=== PATIENT | female | born 1950 | race Caucasian/White ===

== ENCOUNTER 2019-08-01 08:55 | Outpatient (CLI) | payer MEDICARE, SELFPAY ==
[2019-08-01 13:11] LABS: Alanine Aminotransferase 30 U/L (4-35); Albumin Level 4.2 g/dL (3.5-5.1); Alkaline Phosphatase 94 U/L (38-126); Aspartate Amino Transferase 27 U/L (14-36); Bilirubin,Total 0.4 mg/dL (0.2-1.3); Blood Urea Nitrogen 13 mg/dL (7-17); Calcium 9.4 mg/dL (8.4-10.2); Carbon Dioxide 23 mmol/L (22-30); Chloride 103 mmol/L (98-107); Cholesterol 154 mg/dL (0-200); Estimated Glomerular Filt Rate > 60; Glucose 116 mg/dL (65-105); HDL Direct 53 mg/dL; Potassium 4.3 mmol/L (3.4-5.0); Sodium 138 mmol/L (137-145); Triglycerides 171 mg/dL (<150)
[2019-08-01 13:15] LABS: Hemoglobin A1C 6.6 % (<5.7)
[2019-08-01 13:21] LABS: LDL Cholesterol Direct 82 mg/dL
[2019-08-01 13:39] LABS: Creatinine Urine 90.2 mg/dL
[2019-08-01 14:25] LABS: MALB Creatinine Ratio < 6.7 mg/g (0-30); Microalbumin Urine Random < 6.0 mg/L (0-16.7)
== END 2019-08-01 08:56 | disposition home or self-care (01) ==
LOC: ANHWCLAB 09:11
PROVIDERS: PCP Internal Medicine; Visit Provider Internal Medicine
DX: E11.9 Type 2 diabetes mellitus without complications (principal); E78.2 Mixed hyperlipidemia; E03.9 Hypothyroidism, unspecified; Z79.899 Other long term (current) drug therapy
CPT/HCPCS: 36415; 80053; 80061; 82043; 83036; 84443

== ENCOUNTER 2020-01-30 08:48 | Outpatient (CLI) | payer MEDICARE, SELFPAY ==
[2020-01-30 09:28] LABS: Alanine Aminotransferase 33 U/L (4-35); Albumin Level 4.1 g/dL (3.5-5.1); Alkaline Phosphatase 80 U/L (38-126); Anion Gap 10.2 mmol/L (7-16); Aspartate Amino Transferase 34 U/L (14-36); Bilirubin,Total 0.4 mg/dL (0.2-1.3); Blood Urea Nitrogen 15 mg/dL (7-17); Calcium 8.5 mg/dL (8.4-10.2); Carbon Dioxide 28 mmol/L (22-30); Chloride 105 mmol/L (98-107); Cholesterol 160 mg/dL (0-200); Estimated Glomerular Filt Rate > 60; Glucose 103 mg/dL (65-105); HDL Direct 46 mg/dL; Potassium 4.2 mmol/L (3.4-5.0); Sodium 139 mmol/L (137-145); Triglycerides 264 mg/dL (<150)
[2020-01-30 09:40] LABS: LDL Cholesterol Direct 76 mg/dL
[2020-01-30 09:58] LABS: Thyroid Stimulating Hormone 0.786 uIU/mL (0.465-4.680)
[2020-01-30 10:52] LABS: Free T4 Free Thyroxine 1.17 ng/mL (0.78-2.19)
[2020-01-30 11:49] LABS: Hemoglobin A1C 6.2 % (<5.7)
== END 2020-01-30 08:49 | disposition home or self-care (01) ==
PROVIDERS: PCP Internal Medicine; Visit Provider Nurse Practitioner
DX: E78.5 Hyperlipidemia, unspecified (principal); E03.9 Hypothyroidism, unspecified; E11.9 Type 2 diabetes mellitus without complications
CPT/HCPCS: 36415; 80053; 80061; 83036; 84439; 84443

== ENCOUNTER 2020-08-06 10:47 | Outpatient (CLI) | payer MEDICARE, SELFPAY ==
--- NOTE | ~2020-08-06 | XR_ITS ---
EXAMINATION: XR knee LT 3V DATE: 08/06/2020 11:08 INDICATION: Left knee pain. TECHNIQUE: 3 views of left knee were obtained. COMPARISON: None. FINDINGS: Bone alignment is normal. No fracture. There is mild tricompartmental osteoarthritis. There is a moderate-sized knee joint effusion. IMPRESSION: 1. Mild left knee osteoarthritis. 2. Moderate-sized left knee joint effusion. Reviewed, dictated and finalized at location A. NT ENGINEER
== END 2020-08-06 10:48 | disposition home or self-care (01) ==
PROVIDERS: PCP Internal Medicine; Visit Provider Nurse Practitioner
DX: M17.12 Unilateral primary osteoarthritis, left knee (principal); M25.462 Effusion, left knee
CPT/HCPCS: 73562

== ENCOUNTER → 2020-11-01 10:03 | Outpatient (CLI) | payer MEDICARE, SELFPAY ==
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
== END ==
PROVIDERS: PCP Internal Medicine; Visit Provider Nurse Practitioner
DX: Z12.31 Encounter for screening mammogram for malignant neoplasm of breast (principal); R92.8 Other abnormal and inconclusive findings on diagnostic imaging of breast
CPT/HCPCS: 77063; 77067

== ENCOUNTER → 2020-11-27 08:25 | Outpatient (CLI) | payer MEDICARE, SELFPAY ==
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
== END ==
PROVIDERS: PCP Internal Medicine; Visit Provider Nurse Practitioner
DX: R92.8 Other abnormal and inconclusive findings on diagnostic imaging of breast (principal)
CPT/HCPCS: 76642; 77065

== ENCOUNTER 2021-01-30 13:30 | Outpatient (CLI) | payer MEDICARE, SELFPAY ==
--- NOTE | ~2021-01-30 | MR_ITS ---
EXAMINATION: MR knee LT wo con DATE: 01/30/2021 15:09 INDICATION: Left knee pain. TECHNIQUE: Magnetic resonance imaging (MRI) of the left knee was performed without intravenous contra st. Sequences included axial PD-weighted FS FSE, coronal PD-weighted FSE and PD-weighted FS FSE, sagi ttal PD-weighted FSE, and sagittal T2-weighted FS FSE. COMPARISON: Left knee radiographs 08/06/2020 FINDINGS: Medial compartment: There is an undersurface horizontal tear of body and posterior horn of medial meniscus. There is exte nsive shallow partial-thickness cartilage loss of tibial condyle and femoral condyle. There is deep p artial thickness cartilage loss of femoral condyle involving the medial articular surface with mild s ubchondral edema-like marrow signal intensity. Osteophytes are noted. There are subchondral cysts in the femoral condyle at the posterior articular surface. Lateral compartment: Lateral meniscus is normal. There is extensive shallow partial-thickness cartilage loss of tibial con dyle and femoral condyle. There is deep partial thickness cartilage loss of femoral condyle involving the posterior articular surface. Osteophytes are noted. Patellofemoral compartment: There is full-thickness cartilage loss of patellar median ridge and medial facet and deep partial thi ckness cartilage loss of patellar lateral facet with mild subchondral edema-like marrow signal intens ity. There is partial-thickness cartilage loss of trochlea. Osteophytes are noted. Ligaments and tendons: The anterior and posterior cruciate ligaments are normal. There are changes of prior sprains of media l collateral ligament and fibular collateral ligament characterized by increased signal intensity pro ximally. There is mild patellar tendinopathy. Fluid: There is a large knee joint effusion. There is trace fluid in a Schaffer's cyst. There is mild prepatell ar and superficial infrapatellar bursitis. IMPRESSION: 1. Severe chondrosis of patellofemoral compartment and moderate chondrosis of medial and lateral comp artments. 2. Tear of medial meniscus. 3. Large knee joint effusion. Reviewed, dictated and finalized at location A. IMPRESSION: 1. Severe chondrosis of patellofemoral compartment and moderate chondrosis of m edial and lateral compartments. 2. Tear of medial meniscus. 3. Large knee joint effusion.
== END 2021-01-30 13:31 | disposition home or self-care (01) ==
LOC: ANHIMG 13:41
PROVIDERS: PCP Internal Medicine; Visit Provider Orthopaedic Surgery
DX: S83.242A Other tear of medial meniscus, current injury, left knee, initial encounter (principal); X58.XXXA Exposure to other specified factors, initial encounter; M25.462 Effusion, left knee
CPT/HCPCS: 73721

== ENCOUNTER 2021-03-24 09:24 | Outpatient (CLI) | payer MEDICARE, SELFPAY ==
--- NOTE | 2021-03-24 09:34 | ECG_ITS ---
Measurements Intervals Coleman Rate: 51 P: 22 ID: [id number] QRS: 15 QRSD: 94 T: 11 QT: 396 QTc: 368 Interpretive Statements SINUS BRADYCARDIA BORDERLINE T WAVE ABNORMALITY- ANTERIOR LEADS BASELINE ARTIFACT- I, III, AVL BORDERLINE ECG Electronically Signed On 03-24-2021 10:46:47 CDT by Frantz Butler D.O.
== END 2021-03-24 09:25 | disposition home or self-care (01) ==
LOC: ANHSURGERY 09:26
PROVIDERS: PCP Internal Medicine; Visit Provider Orthopaedic Surgery
DX: E78.5 Hyperlipidemia, unspecified (principal); R94.31 Abnormal electrocardiogram [ECG] [EKG]
CPT/HCPCS: 93005

== ENCOUNTER 2021-03-31 00:23 | Day surgery (SDC) | payer MEDICARE, SELFPAY ==
[2021-03-18 15:02] VITALS: BMI 40.1
[2021-03-31] VITALS (7 sets, daily range): BP systolic 140–168; BP diastolic 53–118; PULSE 55–79; RESP 10–19; TEMP 36.5–36.6; O2SAT 98–100
[2021-03-31 12:47] LABS: Glucose Point of Care 103 mg/dl (65-105)
[2021-03-31] MEDS: ACETAMINOPHEN 500 MG TABLET 1000 MG PO (12:54)
[2021-03-31] MEDS: KETOROLAC 15 MG/ML VIAL (*BKC) IV PUSH (12:54)
--- NOTE | 2021-03-31 13:07 | WPDANESEPPF ---
Anes - Initial Pre Proc Eval Procedure: Operation Date: 03/31/21 14:00 Proposed Procedures p Left Knee Arthroscopy, Partial Meniscectomy - Tony Lizarraga MD Date/Time: 03/31/21 13:07 Surgeon: Tony Lizarraga MD Pre Op Diagnosis: left knee medial meniscal tear Patient Data Age: 70 Gender: F Height: 1.66 m Weight: 111.5 kg Allergies Allergy/AdvReac Type Severity Reaction Status Date / Time codeine AdvReac Intermediate NAUSEA/VOMI Verified 03/31/21 12:50 TING erythromycin base AdvReac Intermediate NAUSEA, Verified 03/31/21 12:50 JOINT ACHES MYCINS AdvReac Intermediate NAUSEA Uncoded 03/31/21 12:50 Home Medications Medication Instructions Recorded Confirmed Type omega 7-ida-pio-fish oil 1,000 mg 3 cap PO DAILY cap 04/28/19 03/31/21 History (120 mg-180 mg) capsule aspirin 81 mg tablet,delayed 81 mg PO DAILY 01/23/20 03/31/21 History release pantoprazole 40 mg tablet,delayed 40 mg PO DAILY #90 tablet 02/13/21 03/31/21 Rx release azelastine 2 spray NASAL Q12H PRN 03/18/21 03/31/21 History ibuprofen [Advil] 800 mg PO HS 03/18/21 03/31/21 History levothyroxine [Synthroid] 100 mcg PO QAM 03/18/21 03/31/21 History metformin 500 mg PO BID 03/18/21 03/31/21 History simvastatin 10 mg PO HS 03/18/21 03/31/21 History Laboratory Tests 03/31/21 12:44 POC Capillary Glucose 103 mg/dl mg/dl (65-105) Patient hx anesthesia problems: none Family hx anesthesia problems: none Results Review: All pre-operative results and documents have been reviewed as part of the pre-operative evaluation. [facility] Past Medical History Medical History (Updated 03/31/21 @ 13:09 by Ridge Escalante DO) Basal cell carcinoma of back Breast mass, right GERD (gastroesophageal reflux disease) Hemoglobin A1c less than 7.0% 07/25/20 A1c = 6.5 Hyperlipidemia Hypothyroidism, unspecified Osteoarthritis of left knee Tear of medial meniscus of left knee Type 2 diabetes mellitus Surgical History Surgical History History of hysterectomy History of rhinoplasty History of tubal ligation Family History Family History Mother Family history of osteoporosis Hypertension Family history of osteoarthritis Family history of coronary artery disease Father Hypertension Family history of elevated blood lipids Acute myocardial infarction Sibling Family history of malignant neoplasm of brain Mother Family history of congestive heart failure Father Myocardial infarction Grandparent Carcinoma of colon Social History Social History Smoking packs per day: 1 Smoking cigarettes per day: 20.0 Years smoked: 40 Smoking pack-years: 40.00 Smoking status: Former smoker Tobacco type: cigarettes Second hand tobacco smoke exposure: No Smoking end date: 03/28/16 Alcohol intake: current Alcohol use details: Drinks less than 1 per week Substance use: never Living arrangements: with family Additional living arrangements comments: SON Additional occupation/education comments: Retired teacher Gender identity (if verbalized by the patient): Female Sexual Orientation (if Verbalized by the Patient): Straight or Heterosexual Spiritual care concerns: No Anes - Eval Final PreProcedure Day of Procedure 03/31/21 13:07 Patient weight: morbidly obese Heart: regular rate and rhythm Lungs: clear to auscultation and normal air movement Airway: Mallampati scale class II Neurological: alert and oriented Last oral intake: >/= 8 hours ASA classification: III Emergent: no Anesthetic plan: proceed Anesthesia type and monitoring: general LMA and standard monitoring Results Review: All pre-operative results and documents have been reviewed as part of the pre-operative evaluation. Informed Consent: The
--- NOTE | 2021-03-31 13:11 | SUR.PREOP ---
pt has walker and aware how to use.
[2021-03-31] MEDS: LACTATED RINGERS 1,000 ML 30 ML IV CONT (13:23)
--- NOTE | 2021-03-31 14:07 | WPDHPUPDATE1 ---
History and Physical Update Update Date/Time: 03/31/21 14:07 History and Physical has been reviewed, including an updated exam of the patient. There are NO changes in the patient's condition. Risks, benefits, and alternatives have been discussed and questions answered. Patient agrees to proceed with procedure.
[2021-03-31] MEDS: ceFAZolin 2 GM/D5W 50 ML 2 GM/50 ML BAG IVPB (15:02)
--- NOTE | 2021-03-31 15:49 | W.PM.PROC2 ---
Procedure Note - Detailed Date of Procedure 03/31/21 Pre-op Diagnosis left knee medial meniscal tear Post-op Diagnosis same Procedure Performed left knee arthroscopy partial medial meniscectomy Surgeon Tony Lizarraga MD Anesthesia general Description of Procedure The patient was identified and proper site identified. She was taken to the operating room and transferred to the OR table placing her supine taking care to pad the torso and extremities. After general anesthetic induction and intubation, a nonsterile tourniquet was placed high on the left thigh but was not inflated. The left lower extremity was positioned, prepped and draped in usual sterile fashion. 10 cc of 1% lidocaine was injected into the subcutaneous tissue in the area of the portals at start of the procedure, and an additional 10 at the end. The portals were established and the arthroscopy was carried out. there was extensive synovitis throughout the knee joint. In the infrapatellar region and anterior horn of the medial meniscus area there was quite a bit of inflamed synovium with evidence of chronic impingement. This area was debrided with shaver than ArthroCare Wand used for hemostasis. Articular cartilage in lateral compartment was in pretty decent shape. There is some fraying of the lateral meniscus. Articular cartilage anteriorly medially was a bit more degenerative. There is complex tearing of the medial meniscus from the posterior horn to the midbody. This was contoured back to a stable rim with basket forceps and a shaver. The knee was flushed with a copious amount of arthroscopic fluid and equipment was removed. Portals were closed with three O nylon suture and a sterile dressing was applied. She tolerated the procedure well, was awakened, extubated and taken to recovery area in stable condition. There were no known intraoperative complications. Estimated blood loss was negligible. She received perioperative antibiotics. Estimated Blood Loss 15 Tourniquet Time 0 Drains No Packing No Pathology none sent Complications No immediate complications Condition stable Disposition PACU
[2021-03-31 15:53] LABS: Glucose Point of Care 86 mg/dl (65-105)
[2021-03-31] MEDS: fentaNYL CITRATE INJ (*CRX) 100 MCG/2 ML VIAL 25 MCG IV PUSH ×2 (15:58→16:01)
== END 2021-03-31 17:25 | disposition home or self-care (01) ==
PROVIDERS: PCP Internal Medicine; Visit Provider Orthopaedic Surgery
PROC: (CPT 29870; principal; 2021-03-31 14:00)
DX: M23.322 Other meniscus derangements, posterior horn of medial meniscus, left knee (principal); Z79.82 Long term (current) use of aspirin; E03.9 Hypothyroidism, unspecified; Z87.2 Personal history of diseases of the skin and subcutaneous tissue; Z85.828 Personal history of other malignant neoplasm of skin; K21.9 Gastro-esophageal reflux disease without esophagitis; E78.5 Hyperlipidemia, unspecified; E11.9 Type 2 diabetes mellitus without complications; Z87.891 Personal history of nicotine dependence; E66.01 Morbid (severe) obesity due to excess calories; Z68.41 Body mass index [BMI] 40.0-44.9, adult; Z79.84 Long term (current) use of oral hypoglycemic drugs
CPT/HCPCS: 29881; 82948; A9270; J0690; J1885; J2250; J3010; J7120

== ENCOUNTER 2021-04-22 10:45 | Outpatient (RCR) | payer MEDICARE, SELFPAY ==
--- NOTE | 2021-04-02 11:55 | PTOPEVAL ---
Thank you for referring Pedro Stark to [facility].? The patient is scheduled to be seen for therapy? 2 x/week for 8 weeks. Please review, sign, date and return this plan of care BERNARD. I agree with and certify that the following plan of care is medically necessary. Referring Physician Date Attending Provider: Tony Lizarraga MD Diagnosis left meniscus tear Onset 06/16 Additional Evaluation Detail She originally injured her knee years ago, but had no problems after receiving a cortison injection. She has 2 + 1 step to enter house. She has 1 flight to basement, but does not have to perform at this time. Subjective Information She had increased knee pain Query Text:As Reported By Patient/ following kneeling on the Family floor 06/16. She did not use a device prior to surgery. She was performing a walking program, but stopped when her knee pain increased. She does have an eliptical/cycling and TM equipment at home. She has been using a ww since surgery. She reports limitations with standing, sitting, walking, steps, monologist, and ADL's. Pain Assessment Self Report Pain Assessment Left Knee(s) Reported Pain Level 2 Pain Frequency Acute,Continuous Lowest Pain Intensity 2 Greatest Pain Intensity 6 Pain Aggravating Factors ADL's,Bending,Exercise/ Activity,Sitting,Stair Climbing,Walking,Weight Bearing/Standing Lower Extremity Range of Motion Knee Range of Motion Left Knee Flexion Range of Motion - Active 86 Knee Extension Range of Motion - Passive -18 Knee Range of Motion Limitations Edema,Muscle Weakness,Pain, Soft Tissue Restriction Lower Extremity Muscle Strength Testing General Lower Extremity Strength Gross Lower Extremity Strength right hip ext: 3-/5, flex: 4/5 knee flex: 4-/5, ext: 4+/5 Hip Strength Left Hip Flexion Strength 3- Fair - Hip Extension Strength 3- Fair - Hip Abduction Strength 3- Fair - Knee Strength Left Knee Flexion Strength 3+ Fair + Knee Extension Strength 3 Fair Posture Posture Standing Position Weight Distribution Weight Marissa
--- NOTE | 2021-04-10 09:11 | PCPTNOTE ---
Patient called & cancelled scheduled appointment this date due to not feeling well.
--- NOTE | 2021-04-24 08:56 | PCPTNOTE ---
Patient called to cancel this date. Patient states she did not feel well.
--- NOTE | 2021-04-29 08:58 | PCPTNOTE ---
Patient called & cancelled all f/u scheduled appointment due therapy is too much for her.
--- NOTE | 2021-04-29 08:58 | PCPTNOTE ---
Admitting Provider: Attending Provider: Tony Lizarraga MD Patient:Pedro Stark Date of :1950 Physical Therapy Discharge Summary Patient called to cancel her remaining therapy visits due to therapy is too much for her. She attended 4 therapy visits with 3 cancelled visits since initial visit was on 04/02/2021. The goals have been not met at this time due to limited therapy visits. Thank you for referring this patient to [facility]. Please review, sign, date and return this discharge summary BERNARD. I have been updated about the patient's current status and I agree with discharge from the above service at this time. Referring Physician Date
== END 2021-04-29 15:40 | disposition home or self-care (01) ==
LOC: ANHPT 10:45
PROVIDERS: PCP Internal Medicine; Visit Provider Orthopaedic Surgery
DX: Z48.89 Encounter for other specified surgical aftercare (principal)
CPT/HCPCS: 97014; 97110; 97162; G0283

== ENCOUNTER 2021-12-04 11:42 | Outpatient (CLI) | payer MEDICARE, SELFPAY ==
--- NOTE | ~2021-12-04 | MMUS_ITS ---
EXAMINATION: MM diagnostic james BI w juliana, US breast RT limited HISTORY: Overdue six-month follow-up for probably benign focal asymmetry and mass of the right breast TECHNIQUE: Craniocaudal, mediolateral, and mediolateral oblique 3-D tomosynthesis images of the breas ts were performed and synthetic 2-D images were generated. CAD analysis was submitted and interpreted . High resolution limited right breast ultrasound was performed. COMPARISON: 11/27/2020, 11/01/2020, 11/29/2017, 08/13/2016 BREAST PARENCHYMAL COMPOSITION: There are scattered areas of fibroglandular density. FINDINGS: MAMMOGRAPHIC FINDINGS: Right breast: Focal asymmetry persists in the upper outer quadrant of the right breast decreased sinc e the comparison examination. There is a persistent 12 mm coil cyst in the upper outer quadrant of th e breast. Masses in the middle and posterior thirds of the right breast are stable when compared to p rior examinations, consistent with benign findings. Left breast: There is no suspicious mass, calcification, or architectural distortion to suggest nithya gnancy. There has been no suspicious interval change. ULTRASOUND: There are stable cysts in the upper outer quadrant of the right breast without significant change. IMPRESSION: 1. No mammographic or sonographic evidence of malignancy. 2. Recommend routine screening mammography in one year. BI-RADS Category 2: Benign finding(s). Reviewed, dictated and finalized at location A. IMPRESSION: 1. No mammographic or sonographic evidence of malignancy. 2. Recommend routine screening mammography in one year. BI-RADS Category 2: Benign finding(s).
== END 2021-12-04 11:43 | disposition home or self-care (01) ==
PROVIDERS: PCP Internal Medicine; Visit Provider Internal Medicine
DX: R92.8 Other abnormal and inconclusive findings on diagnostic imaging of breast (principal)
CPT/HCPCS: 76642; 77062; 77066; G0279

== ENCOUNTER → 2022-06-11 08:12 | Outpatient (CLI) | payer MEDICARE, SELFPAY ==
--- NOTE | ~2022-06-11 | MR_ITS ---
MRI of the left ankle Clinical history: Pain Technique: Coronal proton-density and proton-density fat-sat images, axial proton-density and proton- density fat-sat images, and sagittal proton-density and proton-density fat-sat images were acquired. Findings: Syndesmotic ligaments are intact. Anterior and posterior talofibular ligaments, and calcane ofibular ligament are intact. Deltoid ligament is intact. Superomedial band of the spring ligament ap pears intact. Medial flexor tendons, peroneal tendons, and anterior extensor tendons are intact. There is moderate tendinosis of the distal Achilles tendon, which is thickened and intense, with suspected superimposed linear interstitial tear. There is moderate degenerative change at the third TMT joint, with subchondral cystic change about th e joint. Remaining bone marrow signals and joint spaces are preserved. No significant joint effusion. Plantar fascia intact. Normal signal preserved at the sinus Tarsi. No soft tissue mass or fluid colle ction identified. IMPRESSION: Moderate distal Achilles tendinosis with superimposed linear low-grade interstitial tear. Moderate degenerative change of the third TMT joint. Reviewed, dictated and finalized at location [] [employer] IMPRESSION: Moderate distal Achilles tendinosis with superimposed linear low-grade intersti tial tear. Moderate degenerative change of the third TMT joint.
== END ==
PROVIDERS: PCP Internal Medicine; Visit Provider Podiatrist Foot & Ankle Surgery
DX: M25.572 Pain in left ankle and joints of left foot (principal); M76.62 Achilles tendinitis, left leg
CPT/HCPCS: 73721

== ENCOUNTER 2022-10-29 11:41 | Emergency (ER) | payer MEDICARE, SELFPAY ==
[2022-10-29 11:46] VITALS: BP 158/87; PULSE 62; RESP 20; TEMP 36.6; O2SAT 99
[2022-10-29 11:53] VITALS: BP 158/87; PULSE 62; RESP 20; TEMP 36.6; O2SAT 99
--- NOTE | 2022-10-29 12:06 | ED.EAR ---
HPI - Ear Problem General Chief complaint: Ear Stated complaint: Dizziness/Ears Irritation Time Seen by Provider: 10/29/22 12:07 Source: patient and RN notes reviewed Mode of arrival: ambulatory Limitations: no limitations History of Present Illness HPI Narrative: 72-year-old female presents with concern for sinus congestion, pressure, postnasal drainage for 2 weeks. She reports in the last 2 days her ears feel full, clogged she has had 2 episodes of dizziness. She reports the dizziness as room spinning in nature. She denies any headache, weakness in any extremity, difficulty speaking, difficulty swallowing. She reports she has started using nasal spray yesterday. She denies hearing changes or drainage from the ears. MD Complaint: other (Sinus congestion, ear fullness) Related Data Home Medications Medication Instructions Recorded Confirmed omega 1-xkd-yyp-fish oil 1,000 mg 3 cap PO DAILY 04/28/19 10/29/22 (120 mg-180 mg) capsule (Fish Oil) aspirin 81 mg tablet,delayed 81 mg PO DAILY 01/23/20 10/29/22 release ibuprofen 200 mg tablet (Advil) 800 mg PO HS PRN Pain 05/11/22 10/29/22 empagliflozin 10 mg tablet 10 mg DIRECTED 10/29/22 10/29/22 (Jardiance) ezetimibe 10 mg tablet 10 mg PO DAILY 10/29/22 10/29/22 Allergies Allergy/AdvReac Type Severity Reaction Status Date / Time codeine AdvReac Intermediate NAUSEA/VOMI Verified 05/11/22 13:49 TING erythromycin base AdvReac Intermediate NAUSEA, Verified 08/06/22 08:20 JOINT ACHES Review of Systems Review of Systems: CONSTITUTIONAL: Denies malaise, chills, sweats, or fever. EYES: Denies visual changes, redness, or discharge. ENT: Reports rhinorrhea, congestion, sinus pain. Denies sore throat. Reports ear fullness CARDIOVASCULAR: Denies chest pain, palpitations, or edema. RESPIRATORY: Denies cough. Denies dyspnea. GASTROINTESTINAL: Denies abdominal pain, nausea, vomiting, diarrhea SKIN: Denies rash or itching. MUSCULOSKELETAL: Denies myalgia. NEUROLOGIC: Denies headache, weakness. Reports dizziness All systems reviewed & are unremarkable except as noted in HPI and below PMFSH Past Medical History Medical History Basal cell carcinoma of back Breast mass, right COVID-19 GERD (gastroesophageal reflux disease) Hemoglobin A1c less than 7.0% 07/25/20 A1c = 6.5 Hyperlipidemia Hypothyroidism, unspecified Osteoarthritis of left knee Tear of medial meniscus of left knee Type 2 diabetes mellitus Surgical History Surgical History History of hysterectomy History of left knee surgery arthroscopy with partial medial meniscectomy March 31, 2021 History of rhinoplasty History of tubal ligation Family History Family History Mother Family history of osteoporosis Hypertension Family history of osteoarthritis Family history of coronary artery disease Father Hypertension Family history of elevated blood lipids Acute myocardial infarction Sibling Family history of malignant neoplasm of brain Mother Family history of congestive heart failure Father Myocardial infarction Grandparent Carcinoma of colon Social History Social History Smoking packs per day: 1 Smoking cigarettes per day: 20.0 Years smoked: 40 Smoking pack-years: 40.00 Smoking status: Former smoker Tobacco type: cigarettes Second hand tobacco smoke exposure: No Smoking end date: 03/28/16 Alcohol intake: current Alcohol use details: occasionally Substance use: never Substance use type: does not use Lack of Transportation: No Lack of Food: Never True Current Housing: I Have Housing Concerned About Future Housing: No Difficulty Paying Gas/Electric Bills: No Difficulty Paying for Meds: No Curr
== END 2022-10-29 12:17 | disposition home or self-care (01) ==
PROVIDERS: Emergency Provider Nurse Practitioner; PCP Internal Medicine
DX: J01.90 Acute sinusitis, unspecified (principal); Z87.891 Personal history of nicotine dependence; K21.9 Gastro-esophageal reflux disease without esophagitis; E78.5 Hyperlipidemia, unspecified; E03.9 Hypothyroidism, unspecified; M17.12 Unilateral primary osteoarthritis, left knee; E11.9 Type 2 diabetes mellitus without complications; Z85.828 Personal history of other malignant neoplasm of skin; Z86.16 Personal history of COVID-19; Z79.82 Long term (current) use of aspirin
CPT/HCPCS: 99213; G0463

== ENCOUNTER 2023-02-26 15:13 | Outpatient (CLI) | payer MEDICARE, SELFPAY ==
--- NOTE | ~2023-02-26 | MM_ITS ---
EXAMINATION: MM screening [facility] BI w juliana HISTORY: Screening mammogram TECHNIQUE: Craniocaudal and mediolateral oblique 3-D tomosynthesis images were obtained and synthetic 2-D images were generated. CAD analysis was submitted and interpreted. COMPARISON: 12/04/2021 diagnostic bilateral mammogram and limited right breast ultrasound examination 11/27/2020 diagnostic right mammogram and limited right breast ultrasound 11/01/2020 bilateral screening mammogram BREAST PARENCHYMAL COMPOSITION: There are scattered areas of fibroglandular density. FINDINGS: Again noted is right upper outer quadrant asymmetry including oil cyst and likely postbiops y scarring. There numerous benign calcifications again noted on the right. Stable approximately 4.9 x 6 mm circumscribed opacity is noted posteriorly in the central mid to uppe r posterior right breast. There is no evidence of suspicious mass, calcification, or architectural di stortion to suggest malignancy in either breast. There has been no suspicious interval change. IMPRESSION: 1. Benign findings; no significant change since 11/01/2020 2. Routine annual mammographic screening is recommended BI-RADS Category 2: Benign finding(s). Reviewed, dictated and finalized at location A.
== END 2023-02-26 15:14 | disposition home or self-care (01) ==
LOC: ANHIMG 15:15
PROVIDERS: PCP Family Medicine; Visit Provider Nurse Practitioner
DX: Z12.31 Encounter for screening mammogram for malignant neoplasm of breast (principal)
CPT/HCPCS: 77063; 77067

== ENCOUNTER → 2023-08-20 07:57 | Outpatient (CLI) | payer MEDICARE, SELFPAY ==
--- NOTE | ~2023-08-20 | MR_ITS ---
MRI of the right knee Clinical history: Medial meniscal tear Technique: Coronal proton density and proton density-weighted images, sagittal proton-density and T2 fat-sat images, and axial proton-density fat-saturated images were acquired. Findings: Anterior and posterior cruciate ligaments are intact. Medial collateral ligament and the la teral collateral ligament complex are intact. Popliteus tendon is intact. Questionable subtle undersurface flap tear of the posterior horn of the medial meniscus. No lateral m eniscal tear seen. There is mild chondromalacia of the medial and lateral compartments. There is moderate to high-grade patchy chondromalacia of the patella. There is extensive moderate chondromalacia the femoral trochlea . Small tricompartmental osteophytes are present. Extensor mechanism is intact. Minimal joint effusion present. No Schaffer's cyst. Impression: Questionable undersurface flap tear of the posterior horn of the medial meniscus. Mild tricompartmental degenerative change, worst in the patellofemoral compartment. Reviewed, dictated and finalized at [facility]. D BANK SUPERVISOR Impression: Questionable undersurface flap tear of the posterior horn of the medial meniscu s. Mild tricompartmental degenerative change, worst in the patellofemoral compartm ent.
== END ==
PROVIDERS: PCP Orthopaedic Surgery; Visit Provider Orthopaedic Surgery
DX: S83.241A Other tear of medial meniscus, current injury, right knee, initial encounter (principal); X58.XXXA Exposure to other specified factors, initial encounter
CPT/HCPCS: 73721

== ENCOUNTER 2023-11-10 10:21 | Outpatient (CLI) | payer MEDICARE, SELFPAY ==
--- NOTE | ~2023-11-10 | DEXA_ITS ---
Bone Density Report Name: SARAH SUGGS Age: 73 Sex: Female Ethnicity: White Date of : 1950 Indication: postmenopausal; screening for osteoporosis; height loss; history of glucocorticoids; cancer; hysterectomy; Referring Provider: KB NASSAR Study: Bone densitometry was performed. Exam Date: November 10, 2023 Accession number: [id number] Bone Density: Region BMD T-score Z-score Classification AP Spine(L1-L4) 1.177 1.2 3.4 Normal Femoral Neck (Left) 0.866 0.2 2.1 Normal Total Hip (Left) 1.114 1.4 3.0 Normal Femoral Neck (Right) 0.959 1.0 2.9 Normal Total Hip (Right) 1.114 1.4 3.0 Normal Total Hip Mean 1.114 1.4 3.0 Normal World Health Organization criteria for BMD impression classify patients as: Normal (T-score at or above -1.0), Osteopenia (T-score between -1.0 and -2.5), or Osteoporosis (T-score at or below -2.5). 10-year Fracture Risk: FRAX not reported because: All T-scores for Spine Total, Hip Total, Femoral Neck at or above -1.0 Previous Exams: Region Exam Age BMD T-score BMD Change BMD Change Date g/cm2 vs Baseline vs Previous AP Spine (L1-L4) 11/10/2023 73 1.177 1.2 0.048 (4.2%)* 0.048 (4.2%)* 11/10/2023 73 1.130 0.8 Total Hip(Left) 11/10/2023 73 1.114 1.4 0.007 (0.6%) 0.007 (0.6%) 09/10/2016 66 1.107 1.4 Total Hip(Right) 11/10/2023 73 1.114 1.4 0.035 (3.2%)* 0.035 (3.2%)* 09/10/2016 66 1.079 1.1 *Denotes significance at 95% confidence level, LSC for AP Spine = 0.022 g/cm2, LSC for Total Hip = 0.027 g/cm2 Clinical Information Provided by Patient: Smokes Has taken Glucocorticoids Has the following medical conditions: Cancer, Hysterectomy Patient maximum height was 67 Menopause Age: 38 No regular weight bearing exercise Drinks caffeinated beverages Onset of menses at age 15 Number of children 3 Impression: The patient has normal bone mass. The patient has risk factors, including: smoking, history of glucocorticoid therapy. No significant bone loss was observed. Discussion: LOW RISK OF FRACTURE; BONE DENSITY IS WELL ABOVE THE MINIMUM DESIRABLE LEVEL AND ABOVE AVERAGE FOR AGE AND SEX AT ALL SKELETAL SITES TESTED. This person's bone density is above expected limits for age and sex. This is rarely clinically significant, but should be pursued if there are significant musculoskeletal complaints. The patient should follow a healthful lifestyle (good nutrition with adequat
== END 2023-11-10 10:22 | disposition home or self-care (01) ==
PROVIDERS: PCP Nurse Practitioner; Visit Provider Nurse Practitioner
DX: Z78.0 Asymptomatic menopausal state (principal)
CPT/HCPCS: 77080

== ENCOUNTER 2024-04-21 08:02 | Outpatient (CLI) | payer MEDICARE, SELFPAY ==
--- NOTE | ~2024-04-21 | MM_ITS ---
EXAMINATION: MM screening [facility] BI w juliana HISTORY: Screening TECHNIQUE: Craniocaudal and mediolateral oblique 3-D tomosynthesis images were obtained and synthetic 2-D images were generated. CAD analysis was submitted and interpreted. COMPARISON: Comparison to multiple prior studies sequentially, with oldest reviewed study dated 08/13. BREAST PARENCHYMAL COMPOSITION: Not dense: There are scattered areas of fibroglandular density. FINDINGS: There are stable masses in the upper central aspect of the right breast, middle third, pres umably benign. There is no evidence of suspicious mass, calcification, or architectural distortion to suggest malignancy in either breast. There has been no suspicious interval change. IMPRESSION: 1. No mammographic evidence of malignancy. 2. Recommend routine screening mammography in one year. BI-RADS Category 2: Benign finding(s). Reviewed, dictated and finalized at location B.
== END 2024-04-21 08:03 | disposition home or self-care (01) ==
LOC: ANHIMG 08:04
PROVIDERS: PCP Nurse Practitioner; Visit Provider Nurse Practitioner
DX: Z12.31 Encounter for screening mammogram for malignant neoplasm of breast (principal)
CPT/HCPCS: 77063; 77067

== ENCOUNTER 2025-04-12 00:56 | Day surgery (SDC) | payer MEDICARE, SELFPAY ==
[2025-04-04 08:32] VITALS: BMI 35.6
--- OUTSIDE RECORDS SUMMARY | 2025-04-12 00:59 | XMS_ITS | Patient Health Record ---
Author Organization [facility] Address [address] [place], [place] [id number] Care Team Providers Care Digital Account Supervisor Name Role Phone KRYSTAL OLIVARES Unavailable [phone] Camilo Celeste Unavailable Unavailable Reason For Referral No Information Plan Of Treatment No Information Insurance Providers Payer Name Payer Address Payer Phone Subscriber Number Group Number Insured Name Patient Relationship to Insured Coverage Start Date Coverage End Date [facility] [address] [address] [place] [address] [id number] SARAH SUGGS Self - patient is the insured
[2025-04-12 08:36] VITALS: BP 149/63; PULSE 64; RESP 16; TEMP 36.3; O2SAT 99; BMI 36.1
[2025-04-12] MEDS: LACTATED RINGERS 1,000 ML 150 ML IV CONT (08:49)
--- NOTE | 2025-04-12 09:38 | WPDANESEPPF ---
Anes - Initial Pre Proc Eval Procedure: Operation Date: 04/12/25 10:00 Proposed Procedures p Screening Colonoscopy - Yoni Chau MD Date/Time: 04/12/25 09:38 Surgeon: Yoni Chau MD Pre Op Diagnosis: Personal history of colon polyps, unspecified Patient Data Age: 74 Gender: F Height: 1.65 m Weight: 98.5 kg Last Vital Signs Temp 97.4 F L 04/12/25 08:36 Pulse 64 04/12/25 08:36 Resp 16 04/12/25 08:36 BP 149/63 H 04/12/25 08:36 Pulse Ox 99 04/12/25 08:36 O2 Del Method Room Air 04/12/25 08:36 Allergies Allergy/AdvReac Type Severity Reaction Status Date / Time codeine AdvReac Intermediate NAUSEA/VOMI Verified 04/12/25 08:35 TING erythromycin base AdvReac Intermediate NAUSEA, Verified 04/12/25 08:35 JOINT ACHES Home Medications ?Medication ?Instructions ?Recorded ?Confirmed ?Type aspirin 81 mg tablet,delayed 81 mg PO DAILY 01/23/20 04/12/25 History release lancets (OneTouch UltraSoft #200 ea 05/14/22 04/12/25 Rx Lancets) omega 0-eek-exw-fish oil 1,000 mg 2 cap PO DAILY 11/10/22 04/12/25 History (120 mg-180 mg) capsule (Fish Oil) tirzepatide 15 mg/0.5 mL See Rx Instructions .Route 12/01/24 04/04/25 Rx subcutaneous pen injector .COMPLEX #2 mL (Jim) blood sugar diagnostic (OneTouch #100 ea 12/06/24 04/12/25 Rx Ultra Test strips) azelastine 137 mcg (0.1 %) nasal 1 spray intranasal Q12H #30 mL 01/01/25 04/12/25 Rx spray ezetimibe 10 mg tablet See Rx Instructions .Route 01/01/25 04/12/25 Rx .COMPLEX #90 tabs metformin 500 mg tablet See Rx Instructions .Route 01/01/25 04/12/25 Rx .COMPLEX #180 tabs pantoprazole 40 mg tablet,delayed 40 mg PO BID #180 tabs 01/01/25 04/12/25 Rx release simvastatin 10 mg tablet 10 mg PO HS #90 tabs 02/02/25 04/12/25 Rx levothyroxine 100 mcg tablet See Rx Instructions .Route 02/19/25 04/12/25 Rx .COMPLEX #90 tabs cetirizine 10 mg tablet (24Hour 10 mg PO DAILY PRN allergy symptoms 04/04/25 04/04/25 History Allergy) Laboratory Tests 04/12/25 08:41 POC Capillary Glucose 90 mg/dl (65-105) Patient hx anesthesia problems: none Family hx anesthesia problems: none Results Review: All pre-operative results and documents have been reviewed as part of the pre-operative evaluation. ON LICENSE OF [facility] Past Medical History Medical History Degenerative arthritis of knee, bilateral COVID-19 GERD (gastroesophageal reflux disease) Tear of medial meniscus of left knee Osteoarthritis of left knee Hemoglobin A1c less than 7.0% 07/25/20 A1c = 6.5 Type 2 diabetes mellitus Hyperlipidemia Breast mass, right Basal cell carcinoma of back Hypothyroidism, unspecified Surgical History Surgical History History of left knee surgery arthroscopy with partial medial meniscectomy March 31, 2021 History of tubal ligation History of rhinoplasty History of hysterectomy Family History Family History Mother Family history of osteoporosis Hypertension Family history of osteoarthritis Family history of coronary artery disease Family history of congestive heart failure Father Hypertension Family history of elevated blood lipids Acute myocardial infarction Alcoholism Sibling Family history of malignant neoplasm of brain Grandparent Carcinoma of colon Social History Social History Smoking packs per day: 1 Smoking cigarettes per day: 20.0 Years smoked: 40 Smoking pack-years: 40.00 Smoking status: Former smoker Tobacco type: cigarettes Second hand tobacco smoke exposure: No Smoking end date: 03/28/16 Alcohol intake: never Alcohol use details: very rare Substance use: never Substance use type: does not use Do You Feel Safe in your Home?: Yes Lack of Transportation: No Lack of Food: Never True Current Housing: I Have Housing Concerned About Future Housing: No Difficulty Paying Gas/Electric Bills: No Difficulty Paying for Meds: No Currently Unemployed: No Education: Master's Degree or Higher Difficulty w/ Childcare or Family Care: No Living arrangements: with family Additional living arrangements comments: SON Occupation/Education: retired Additional occupation/education comments: Retired [employer] Gender identity (if verbalized by the patient): Female Sexual Orientation (if Verbalized by the Patient): Straight or Heterosexual Spiritual care concerns: No Anes - Eval Final PreProcedure Day of Procedure 04/12/25 09:38 Patient weight: obese Heart: regular rate and rhythm Lungs: clear to auscultation Airway: Mallampati scale class II Neurological: alert and oriented Last oral intake: >/= 8 hours ASA classification: III Emergent: no Anesthetic plan: proceed Anesthesia type and monitoring: general GIVS and standard monitoring Results Review: All pre-operative results and documents have been reviewed as part of the pre-operative evaluation. Informed Consent: The patient's anesthetic plan and its attendant risks and benefits were discussed with the patient/family/POA. Questions were solicited and answers provided to the satisfaction of the patient/family/POA.
--- NOTE | 2025-04-12 09:46 | PM.IMHP ---
H&P: HPI History of Present Illness Date/Time: 04/12/25 09:46 Chief Complaint: History of colon polyps Narrative: The patient has a history of colonic polyps, the last colonoscopy was 7 years ago. Review of Systems Review of Systems: All systems reviewed & are unremarkable except as noted in HPI and below PMFSH Past Medical History Medical History Degenerative arthritis of knee, bilateral COVID-19 GERD (gastroesophageal reflux disease) Tear of medial meniscus of left knee Osteoarthritis of left knee Hemoglobin A1c less than 7.0% 07/25/20 A1c = 6.5 Type 2 diabetes mellitus Hyperlipidemia Breast mass, right Basal cell carcinoma of back Hypothyroidism, unspecified Surgical History Surgical History History of left knee surgery arthroscopy with partial medial meniscectomy March 31, 2021 History of tubal ligation History of rhinoplasty History of hysterectomy Family History Family History Mother Family history of osteoporosis Hypertension Family history of osteoarthritis Family history of coronary artery disease Family history of congestive heart failure Father Hypertension Family history of elevated blood lipids Acute myocardial infarction Alcoholism Sibling Family history of malignant neoplasm of brain Grandparent Carcinoma of colon Social History Social History Smoking packs per day: 1 Smoking cigarettes per day: 20.0 Years smoked: 40 Smoking pack-years: 40.00 Smoking status: Former smoker Tobacco type: cigarettes Second hand tobacco smoke exposure: No Smoking end date: 03/28/16 Alcohol intake: never Alcohol use details: very rare Substance use: never Substance use type: does not use Do You Feel Safe in your Home?: Yes Lack of Transportation: No Lack of Food: Never True Current Housing: I Have Housing Concerned About Future Housing: No Difficulty Paying Gas/Electric Bills: No Difficulty Paying for Meds: No Currently Unemployed: No Education: Master's Degree or Higher Difficulty w/ Childcare or Family Care: No Living arrangements: with family Additional living arrangements comments: SON Occupation/Education: retired Additional occupation/education comments: Retired [employer] Gender identity (if verbalized by the patient): Female Sexual Orientation (if Verbalized by the Patient): Straight or Heterosexual Spiritual care concerns: No Meds Home Medications and Allergies Home Medications ?Medication ?Instructions ?Recorded ?Confirmed ?Type aspirin 81 mg tablet,delayed 81 mg PO DAILY 01/23/20 04/12/25 History release lancets ([employer]Touch UltraSoft #200 ea 05/14/22 04/12/25 Rx Lancets) omega 2-qao-pxv-fish oil 1,000 mg 2 cap PO DAILY 11/10/22 04/12/25 History (120 mg-180 mg) capsule (Fish Oil) tirzepatide 15 mg/0.5 mL See Rx Instructions .Route 12/01/24 04/04/25 Rx subcutaneous pen injector .COMPLEX #2 mL (Jim) blood sugar diagnostic (OneTouch #100 ea 12/06/24 04/12/25 Rx Ultra Test strips) azelastine 137 mcg (0.1 %) nasal 1 spray intranasal Q12H #30 mL 01/01/25 04/12/25 Rx spray ezetimibe 10 mg tablet See Rx Instructions .Route 01/01/25 04/12/25 Rx .COMPLEX #90 tabs metformin 500 mg tablet See Rx Instructions .Route 01/01/25 04/12/25 Rx .COMPLEX #180 tabs pantoprazole 40 mg tablet,delayed 40 mg PO BID #180 tabs 01/01/25 04/12/25 Rx release simvastatin 10 mg tablet 10 mg PO HS #90 tabs 02/02/25 04/12/25 Rx levothyroxine 100 mcg tablet See Rx Instructions .Route 02/19/25 04/12/25 Rx .COMPLEX #90 tabs cetirizine 10 mg tablet (24Hour 10 mg PO DAILY PRN allergy symptoms 04/04/25 04/04/25 History Allergy) Allergies Allergy/AdvReac Type Severity Reaction Status Date / Time codeine AdvReac Intermediate NAUSEA/VOMI Verified 04/12/25 08:35 TING erythromycin base AdvReac Intermediate NAUSEA, Verified 04/12/25 08:35 JOINT ACHES Vital Signs Vital Signs - 24 hr 04/12/25 08:36 Temperature 97.4 F L Pulse Rate 64 Respiratory Rate 16 Blood Pressure 149/63 H Pulse Oximetry 99 Oxygen Delivery Room Air Exam Const: General: cooperative and healthy appearing Resp: Effort & Inspection: normal respiratory effort and able to speak in complete sentences Auscultation: clear to auscultation bilaterally Cardio: Rate: regular rate Rhythm: regular rhythm GI: Inspection: normal to inspection GI Palp: No No hepatosplenomegaly present Auscultation: normal bowel sounds Rectal Exam: deferred Skin: General skin exam: normal color Psych: Appearance: grossly normal Mental Status: mental status grossly normal Assessment and Plan Assessment and plan (1) History of colon polyps: Code(s): Z86.010 - Personal history of colon polyps Status: Acute Assessment and Plan: The patient is deemed a good candidate for the procedure. Consent signed. Will proceed.
--- NOTE | 2025-04-12 10:14 | S_PTH ---
PATIENT: Pedro Stark LOC: [facility] U#:[id number] AGE/SX: 74/F ROOM: RE04/12/[address]: Yoni Chau MD : 1950 BED: DIS: 04/12/2025 SPEC #: [id number] RECD: 04/12/25 11:14 STATUS: GALE REQ #: [id number] NIKITA: 04/12/25 10:[address]: Yoni Chau DEPT: [facility] Surgical RECD BY: She Martinez ENTERED: 04/12/25 11:14 SP TYPE: Surgical OTHR DR: Camilo Celeste DO Tissues: A - Colon Biopsy Procedures: Hematoxylin and Eosin Stain Gross and Microscopic Level 4
[2025-04-12 10:18] VITALS: BP 142/56; PULSE 57; RESP 19; O2SAT 100
[2025-04-12 10:28] VITALS: BP 131/62; PULSE 57; RESP 20; O2SAT 100
[2025-04-12 10:38] VITALS: BP 151/75; PULSE 55; RESP 14; O2SAT 100
== END 2025-04-12 10:44 | disposition home or self-care (01) ==
PROVIDERS: PCP Internal Medicine; Referring Provider Internal Medicine; Visit Provider Internal Medicine Gastroenterology
PROC: 0DJD8ZZ Inspection of Lower Intestinal Tract, Via Natural or Artificial Opening Endoscopic (ICD-10-PCS; CPT 45378; principal; 2025-04-12 10:00)
DX: Z12.11 Encounter for screening for malignant neoplasm of colon (principal); K51.40 Inflammatory polyps of colon without complications; K64.8 Other hemorrhoids; K57.30 Diverticulosis of large intestine without perforation or abscess without bleeding; E78.5 Hyperlipidemia, unspecified; E03.9 Hypothyroidism, unspecified; K21.9 Gastro-esophageal reflux disease without esophagitis; E11.9 Type 2 diabetes mellitus without complications; M17.0 Bilateral primary osteoarthritis of knee; E66.9 Obesity, unspecified; Z68.36 Body mass index [BMI] 36.0-36.9, adult; Z79.82 Long term (current) use of aspirin; Z79.85 Long-term (current) use of injectable non-insulin antidiabetic drugs; Z79.84 Long term (current) use of oral hypoglycemic drugs; Z98.890 Other specified postprocedural states; Z98.51 Tubal ligation status; Z87.891 Personal history of nicotine dependence; Z85.828 Personal history of other malignant neoplasm of skin; Z80.8 Family history of malignant neoplasm of other organs or systems; Z80.0 Family history of malignant neoplasm of digestive organs; Z82.49 Family history of ischemic heart disease and other diseases of the circulatory system
CPT/HCPCS: 45380; 45381; 82948; 88305; J2003; J2704; J7120

== ENCOUNTER 2025-04-23 12:03 | Outpatient (CLI) | payer MEDICARE, SELFPAY ==
--- NOTE | ~2025-04-23 | MM_ITS ---
EXAMINATION: MM screening [facility] BI w juliana HISTORY: Screening TECHNIQUE: Craniocaudal and mediolateral oblique 3-D tomosynthesis images were obtained and synthetic 2-D images were generated. CAD analysis was submitted and interpreted. COMPARISON: Comparison to multiple prior studies sequentially, with oldest reviewed study dated 11/29/2017. BREAST PARENCHYMAL COMPOSITION: BI-RADS CATEGORY 2 - BENIGN FINDINGS FINDINGS: There is fat necrosis in the upper outer quadrant of the right breast anteriorly. There are benign bilateral breast calcifications. There is no evidence of suspicious mass, calcification, or architectural distortion to suggest malignancy in either breast. There has been no suspicious interval change. IMPRESSION: 1. No mammographic evidence of malignancy. 2. Recommend routine screening mammography in one year. BI-RADS Category 2: Benign finding(s). Reviewed, dictated and finalized at location B.
--- OUTSIDE RECORDS SUMMARY | 2025-04-23 13:31 | XMS_ITS | Patient Health Record ---
Author Organization [facility] Address [address] [place], [place] [id number] Care Team Providers Care Operator Engineer Name Role Phone KRYSTAL OLIVARES Unavailable [phone] Camilo Celeste Unavailable Unavailable Reason For Referral No Information Social History Social History Additional Details Category Social Info Options Details Migrated Social History Migrated Social History Alcohol intake : , History of tobacco use : , Smoking Status : Former tobacco user Plan Of Treatment No Information Insurance Providers Payer Name Payer Address Payer Phone Subscriber Number Group Number Insured Name Patient Relationship to Insured Coverage Start Date Coverage End Date [facility] [address] [address] [place] [address] [id number] SARAH SUGGS Self - patient is the insured
== END 2025-04-23 12:04 | disposition home or self-care (01) ==
LOC: CHSIMG 12:05
PROVIDERS: PCP Internal Medicine; Visit Provider Internal Medicine
DX: Z12.31 Encounter for screening mammogram for malignant neoplasm of breast (principal)
CPT/HCPCS: 77063; 77067